=== PATIENT | male | born 1995 | race Caucasian/White ===

== ENCOUNTER 2019-12-11 16:39 | Emergency (ER) | payer OTHER, SELFPAY ==
[2019-12-11 16:46] VITALS: BMI 28.7
[2019-12-11 16:49] VITALS: BP 146/91; PULSE 91; RESP 18; TEMP 36.8; O2SAT 95
--- NOTE | 2019-12-11 16:54 | ED_ITS ---
Entered by Christina Gomez, acting as scribe for Dec 11, 2019 16:39 HPI - Extremity Problem General: Chief complaint: Extremity Injury, Upper Stated complaint: Left elbow Time Seen by Provider: 12/11/19 16:53 Source: patient and family Mode of arrival: ambulatory Limitations: no limitations History of Present Illness: HPI Narrative: 24 yo male presents with possible dislocation of Left elbow and pain. 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 pt was playing football when he slipped and landed on elbow. pt states movement of arm makes this worse and nothing makes it better. pt denies any other symptoms at this time. MD Complaint: extremity pain and extremity swelling Onset (ago): hour(s) (just group captain) Pain Consistency: constant Location: elbow (left) Quality: sharp and constant Radiation: none Relieving factors: nothing Exacerbating factors: range of motion Associated symptoms: Reports no associated symptoms; Deny chest pain, fever(s) or rash Review of Systems General: Reports: 10 or more systems reviewed and unremarkable except in HPI and below Const: Denies: fever, chills, body aches, change in appetite, fatigue or malaise ENMT: Denies: throat pain, ear pain, nasal discharge or nasal congestion Card: Denies: chest pain, edema, shortness of breath on exertion or shortness of breath when lying down Resp: Denies: shortness of breath, productive cough or non-productive cough GI: Denies: abdominal pain, nausea, vomiting, vomiting blood, coffee grounds in vomit, diarrhea, constipation, bloating, blood in stool or black tarry stool : Denies: flank pain, painful urination, urinary frequency or urinary urgency Skin/Breast: Denies: rash or itching PFSH ED PFSH: Social History Smoking and tobacco status: never smoked Physical Exam Const: COMMON NORMALS: no apparent distress GENERAL APPEARANCE: cooperative ORIENTATION/CONSCIOUSNESS: Yes awake, Yes oriented to person, Yes oriented to place and Yes oriented to time HENMT: COMMON NORMALS: normocephalic, head/scalp atraumatic, hearing grossly normal bilaterally, external ears normal, EAC's normal, TM's normal bilaterally, nasal mucous membranes and turbinates normal, moist oral mucous membranes and oropharynx normal HEAD & SCALP: normocephalic and atraumatic NOSE: nasal mucous membranes and turbinates normal EXTERNAL EAR: Yes external ears normal EXTERNAL AUDITORY CANAL: EAC's normal TYMPANIC MEMBRANE: TM's normal bilaterally Eye: COMMON NORMALS: PERRL, EOMs intact bilaterally, conjunctivae normal and no scleral icterus CONJUNCTIVA: Yes conjunctivae normal PUPIL: Yes PERRL Neck/C-Spine: COMMON NORMALS: full ROM, no lymphadenopathy, supple and no JVD Lymph: LYMPHATIC: no lymphadenopathy noted and no lymphedema noted Resp: COMMON NORMALS: normal respiratory effort, no retractions, no use of accessory muscles and clear to auscultation bilaterally AUSCULTATION: clear to auscultation bilaterally Cardio: COMMON NORMALS: no JVD, regular rate, regular rhythm and no murmurs RATE: regular rate RHYTHM: regular rhythm GI: COMMON NORMALS: soft to palpation and no hepatosplenomegaly AUSCULTATION: Yes normoactive bowel sounds PALPATION: Yes soft, No tender, No guarding and Yes no hepatosplenomegaly Extremity: COMMON NORMALS: no clubbing, cyanosis or edema, no calf tenderness and no pedal edema NARRATIVE EXTREMITY EXAM: Obvious deformity of the right elbow LEFT UPPER EXTREMITY: Yes elbow joint (severe pain) Neuro: SENSORIUM/ORIENTATION: Yes oriented to person, Yes oriented to place and Yes oriented to time Skin: COMMON NORMALS: no rashes or lesions noted GENERAL SKIN EXAM: no rashes or lesions noted Procedures Orthopedic Joint Reduction Joint #1: Time Out Performed: Yes Side: left Joint Reduction Location: elbow Analgesia: procedural sedation Post Reduction X-Ray Obtained: Yes Post Reduction X-Ray Results: reduced Patient Tolerated Procedure: well Additional Comments: Left elbow dislocation confirmed on x-ray. Under procedural its sedation with etomidate was reduced. Procedural Sedation Indication: fracture/dislocation reduction Preparation: ekg monitor tech applied, pulse oximeter, supplemental O2 applied, suction/airway equipment at bedside and IV secured IV Etomidate dose (mg): 15 Patient Tolerated Procedure: well and no complications Complications: none Course ED course: Procedure reduction of elbow dislocation. Post procedure films on the lateral appeal normal however on the AP appears to be some persistent dislocation of the radial head. I discussed with Dr. Morales he feels it is reduced well. We will have the patient follow-up with Ortho for further evaluation. Vital Signs: Vital signs: Vital Signs Temperature 98.2 F 12/11/19 16:49 Pulse Rate 70 12/11/19 18:43 Respiratory Rate 16 12/11/19 18:43 Blood Pressure 150/84 12/11/19 18:43 Pulse Oximetry 98 12/11/19 18:43 Discharge Plan Discharge Patient Disposition: Home, Self-Care Clinical Impression: Dislocation of elbow, anterior, left, closed Condition: Stable Prescriptions: New hydrocodone-acetaminophen 5-325 mg tablet 1 tab PO Q6H PRN (Reason: pain) Qty: 20 RF: 0 No Action No Known Home Medications RF: 0 Discharge Orders: Discharge Order (Routine); Ordered 12/11/19 Ordered By: Cleve Kurtz Referrals: Antonio Celaya, SCHOOL DIRECTOR-C [Primary Care Provider] - Activity Restrictions/Additional Instructions: No use of the left arm until cleared by orthopedics. Case management will call with an appointment to Ortho. Leave arm in sling until you see Ortho. Discharge Date/Time: 12/11/19 18:45 Coding Level of Care Code ED Racing Manager for Chg Fwd Exam Comprehensive The documentation recorded by the Jason farooq Bridget Annette, accurately reflects the service I personally performed and the decisions made by Tessie barboza Curtis L, DO Dec 11, 2019 16:39
--- NOTE | 2019-12-11 16:57 | XR_ITS ---
WS: [id number] XR elbow LT 2V [id number] REASON FOR EXAM: L elbow pain, deformity FINDINGS: There is posterior dislocation of the elbow. Lateral displacement of the radius from the ca pitellum. XR/XR elbow LT 2V [id number] IMPRESSION: Posterior dislocated elbow.
[2019-12-11] MEDS: sodium chloride 0.9% 1,000 ML 999 ML IV (17:04)
[2019-12-11] MEDS: morphine 4 mg/mL SDV 1 mL IVP (17:04)
[2019-12-11] MEDS: ondansetron 2 mg/ML SDV 2 mL 4 MG IVP (17:04)
[2019-12-11 17:11] VITALS: PULSE 72; O2SAT 98
--- NOTE | 2019-12-11 17:48 | XR_ITS ---
WS: [id number] XR elbow LT 2V [id number] REASON FOR EXAM: Postreduction film FINDINGS: Post reduction films show slight irregularity along the capitellum and radial articulation suggesting persistent subluxation. In the lateral projection there is normal alignment of the elbow. XR/XR elbow LT 2V [id number] IMPRESSION: Suspect incomplete reduction of the radial head from the previous dislocation.
[2019-12-11 18:13] VITALS: BP 135/95; PULSE 79; RESP 28; O2SAT 99
[2019-12-11 18:43] VITALS: BP 150/84; PULSE 70; RESP 16; O2SAT 98
--- NOTE | 2019-12-14 12:02 | DCPLANNER ---
classification case manager had message to schedule a follow up appointment for patient with ortho. classification case manager called the clinic, spoke with Brandi, gave clinic patients information. classification case manager was told that patients information would be printed and reviewed. Clinic will call machine adjuster leader case trim and patient with appointment information.
--- NOTE | 2019-12-16 10:33 | DCPLANNER ---
Ortho called piano case and bench assembler back and informed piano case and bench assembler that when called patient to schedule a follow up appointment, that patient had been seen by primary care physician, did not need to be seen by the clinic at this time.
== END 2019-12-11 18:45 | disposition home or self-care (01) ==
PROVIDERS: Emergency Provider Family Medicine; Family Provider Nurse Practitioner; PCP Nurse Practitioner
DX: S53.025A Posterior dislocation of left radial head, initial encounter (principal); W01.0XXA Fall on same level from slipping, tripping and stumbling without subsequent striking against object, initial encounter; Y93.61 Activity, american tackle football
CPT/HCPCS: 24600; 24640; 73070; 96361; 96374; 96375; 99282; 99284; J2270; J2405; J3490; J7030

== ENCOUNTER 2022-01-13 20:21 | Emergency (ER) | payer OTHER, SELFPAY ==
[2022-01-13 20:50] VITALS: BP 154/77; PULSE 79; RESP 16; TEMP 37.1; O2SAT 95; BMI 29.2
--- NOTE | 2022-01-13 22:13 | USR_ITS ---
PROCEDURE INFORMATION: Exam: US Scrotum and US Duplex Artery and Vein, Scrotum, Complete Exam date and time: 01/13/2022 10:53 PM Age: 27 years old Clinical indication: Scrotum pain; Additional info: Test pain. Bilateral testicular pain, right worse than left. TECHNIQUE: Imaging protocol: Real-time ultrasound of the scrotum. Real-time duplex ultrasound scan of the arterial and venous flow of the scrotum with B-mode, color Doppler flow and spectral waveform analysis. Complete exam. Duplex images required to evaluate vascular conditions. COMPARISON: No relevant prior studies available. FINDINGS: Right: The right testicle measures 49 x 24 x 29 mm, estimated volume 17.3 cc. No visible intratesticular mass. Duplex Doppler evaluation, with color flow and spectral waveform analysis, demonstrates intratesticular arterial and venous blood flow. Resistance index in the right testicle is 0.43. The right epididymis is normal in size and appearance. There is a very small amount of right scrotal fluid. Left: The left testicle measures 45 x 26 x 26 mm, estimated volume 16.0 cc. No visible intratesticular mass. Duplex Doppler evaluation, with color flow and spectral waveform analysis, demonstrates intratesticular arterial and venous blood flow. Resistance index in the left testicle is 0.65. The left epididymis is normal in size and appearance. There is a very small amount of left scrotal fluid. US/US scrotum [id number] IMPRESSION: 1. No evidence for torsion by Doppler ultrasound. 2. No findings to suggest epididymitis. 3. Very small amount of scrotal fluid bilaterally, unlikely to be significant. 4. Other details discussed above.
[2022-01-13] MEDS: sodium chloride 0.9% 1,000 ML 999 ML IV ×2 (22:19→22:37)
[2022-01-13 22:22] VITALS: RESP 16
[2022-01-13 22:22] LABS: Basophils # 0.1 10^3/uL (0.0-0.1); Basophils % 0.4 %; Eosinophils # 0.1 10^3/uL (0.0-0.8); Eosinophils % 0.8 %; Hematocrit 54.2 % (42.0-52.0); Hemoglobin 19.3 g/dL (11.7-16.6); Lymphocytes # 0.4 10^3/uL (0.8-4.8); Lymphocytes % 2.8 %; Mean Corpuscular HGB Conc 35.6 g/dL (30.0-36.0); Mean Corpuscular Hemoglobin 29.5 pg (28.0-34.0); Mean Corpuscular Volume 82.7 fl (80-94); Mean Platelet Volume 10.1 fL (7.4-10.4); Monocytes # 0.7 10^3/uL (0.2-0.9); Monocytes % 4.6 %; Neutrophils # 13.52 10^3/uL (1.8-7.7); Neutrophils % 91.1 %; Nucleated Red Blood Cells % 0 %; Platelet Count 246 10^3/cmm (130-400); Red Blood Count 6.55 10^6/uL (4.1-5.3); Red Cell Distribution Width 12.1 % (12.1-15.1); White Blood Count 14.9 10^3/uL (4.0-10.0)
[2022-01-13] MEDS: ondansetron 2 mg/ML SDV 2 mL 4 MG IVP (22:22)
[2022-01-13] MEDS: morphine 4 mg/mL SDV 1 mL IVP (22:22)
--- NOTE | 2022-01-13 22:22 | W.ED.NAVMDI ---
HPI - Nausea/Vomiting/Diarrhea General: Chief complaint: Nausea/Vomiting/Diarrhea Stated complaint: Fever\SOB\N\V\Diarhea Time Seen by Provider: 01/13/22 22:03 Source: patient Mode of arrival: ambulatory Limitations: no limitations History of Present Illness: 27-year-old male states that over the last 2 to 3 days been having diffuse abdominal cramping along with nausea vomiting diarrhea along with testicle pain. He states that gotten worse today. States he is also having difficulty urinating. He states the pain in his testicles and abdominal cramping pain rates it a 2-3 out of 10 no fevers denies any worsening improving factors. Associated nausea: Yes Associated symtoms: Reports nausea; Denies chest pain or headache(s) Review of Systems Const: Denies: fever(s), chills, body aches or change in appetite Eyes: Denies: blurry vision or eye discomfort ENMT: Denies: throat pain or dental pain Card: Denies: chest pain Resp: Denies: dyspnea GI: Reports: abdominal pain, nausea and vomiting : Reports: testicular pain Musc: Denies: neck pain or back pain Skin/Breast: Denies: rash Neuro: Denies: headache(s) Psych: Denies: depression Roman/Lymph: Denies: easy bruising All/Imm: Denies: urticaria PFSH ED PFSH: Surgical History No pertinent past surgical history Social History Smoking and tobacco status: never smoked Physical Exam Const: COMMON NORMALS: no acute distress, patient oriented x3 and healthy appearing HENMT: COMMON NORMALS: normocephalic and atraumatic HEAD & SCALP: normocephalic and atraumatic Eye: COMMON NORMALS: Equal, round and reactive pupils present and EOMs intact bilaterally PUPIL: Yes Equal, round and reactive pupils present Neck/C-Spine: COMMON NORMALS: full ROM and supple Chest: COMMONS NORMALS: normal inspection of the chest and normal palpation of entire chest wall Resp: COMMON NORMALS: normal respiratory effort, No retractions, No use of accessory muscles and clear to auscultation bilaterally AUSCULTATION: clear to auscultation bilaterally Cardio: COMMON NORMALS: regular rate, regular rhythm and No murmurs present (Cardio) RATE: regular rate RHYTHM: regular rhythm GI: COMMON NORMALS: Normal to inspection, nondistended, normoactive bowel sounds present, Soft to palpation, non-tender and no masses PALPATION: Yes Soft to palpation Extremity: COMMON NORMALS: normal to inspection and full ROM Neuro: COMMON NORMALS: patient oriented x3, moves all extremities and no focal motor deficits Psych: COMMON NORMALS: mental status grossly normal, Normal thought process present and cooperative THOUGHT PROCESS: Normal thought process present Skin: COMMON NORMALS: no rashes or lesions noted and no wounds GENERAL SKIN EXAM: no rashes or lesions noted Course Vital Signs: Vital signs: Vital Signs Temperature 98.8 F 01/13/22 20:50 Pulse Rate 79 01/13/22 20:50 Respiratory Rate 16 01/13/22 22:22 Blood Pressure 154/77 01/13/22 20:50 Pulse Oximetry 95 01/13/22 20:50 MDM - Nausea/Vomiting/Diarrhea Medical Decision Making Patient presents here with abdominal pain along with vomiting he appeared dehydrated feels improved after IV fluids CT scan here was normal. His pains improved here he has had no vomiting here has been able to tolerate p.o. will prescribe Zofran for home he is to follow-up with his PCP return if worsening. Lab Data : 01/13/22 22:09 01/13/22 22:09 Radiology Impressions Scrotum Ultrasound 01/13/22 22:13 IMPRESSION: 1. No evidence for torsion by Doppler ultrasound. 2. No findings to suggest epididymitis. 3. Very small amount of scrotal fluid bilaterally, unlikely to be significant. 4. Other details discussed above. Abdomen/Pelvis CT 01/13/22 23:18 IMPRESSION: 1. Normal appendix. 2. No hydronephrosis of either kidney. No visible ureteral calculus. 3. The urinary bladder appears essentially unremarkable by CT. 4. Several small bowel loops are fluid-filled and upper range of normal in size, see above discussion. Somewhat distended stomach. This appearance could be secondary to some form of gastroenteritis. 5. No free air or significant bowel distention. 6. Other findings discussed above. Laboratory Results WBC 14.9 10^3/uL (4.0-10.0) H 01/13/22 22:09 RBC 6.55 10^6/uL (4.1-5.3) H 01/13/22 22:09 Hgb 19.3 g/dL (11.7-16.6) H 01/13/22 22:09 Hct 54.2 % (42.0-52.0) H 01/13/22 22:09 MCV 82.7 fl (80-94) 01/13/22 22:09 MCH 29.5 pg (28.0-34.0) 01/13/22 22:09 MCHC 35.6 g/dL (30.0-36.0) 01/13/22 22:09 RDW 12.1 % (12.1-15.1) 01/13/22 22:09 Plt Count 246 10^3/cmm (130-400) 01/13/22 22:09 MPV 10.1 fL (7.4-10.4) 01/13/22 22:09 Neut % (Auto) 91.1 % 01/13/22 22:09 Lymph % (Auto) 2.8 % 01/13/22 22:09 Mckenzie % (Auto) 4.6 % 01/13/22 22:09 Eos % (Auto) 0.8 % 01/13/22 22:09 Baso % (Auto) 0.4 % 01/13/22 22:09 Neut # (Auto) 13.52 10^3/uL (1.8-7.7) H 01/13/22 22:09 Lymph # (Auto) 0.4 10^3/uL (0.8-4.8) L 01/13/22 22:09 Mckenzie # (Auto) 0.7 10^3/uL (0.2-0.9) 01/13/22 22:09 Eos # (Auto) 0.1 10^3/uL (0.0-0.8) 01/13/22 22:09 Baso # (Auto) 0.1 10^3/uL (0.0-0.1) 01/13/22 22:09 Nucleated RBC % (auto) 0 % 01/13/22 22:09 Nucleated RBCs # 0.0 /100WBC 01/13/22 22:09 Sodium 137 mmol/L (136-145) 01/13/22 22:09 Potassium 4.9 mmol/L (3.5-5.1) 01/13/22 22:09 Chloride 102 mmol/L (98-107) 01/13/22 22:09 Carbon Dioxide 19 mmol/L (22-29) L 01/13/22 22:09 Anion Gap 20.9 (5-19) H 01/13/22 22:09 BUN 20 mg/dL (6-20) 01/13/22 22:09 Creatinine 0.9 mg/dL (0.7-1.2) 01/13/22 22:09 GFR Calculation 102.0 mL/min (90-130) 01/13/22 22:09 Glucose 102 mg/dL (65-115) 01/13/22 22:09 Calculated Osmolality 287 mOsm/kg (285-295) 01/13/22 22:09 Calcium 10.2 mg/dL (8.5-10.5) 01/13/22 22:09 Total Bilirubin 1.3 mg/dL (0.15-1.2) H 01/13/22 22:09 AST 25 U/L (0-40) 01/13/22 22:09 ALT 40 U/L (0-41) 01/13/22 22:09 Alkaline Phosphatase 60 IU/L (40-130) 01/13/22 22:09 Total Protein 8.5 g/dL (6.6-8.7) 01/13/22 22:09 Albumin 5.8 g/dL (3.5-5.2) H 01/13/22 22:09 Globulin 2.7 g/dL (1.3-4.6) 01/13/22 22:09 Lipase 14 U/L (13-60) 01/13/22 22:09 Urine Color Yellow (Yellow) 01/14/22 00:05 Urine Appearance Clear (CLEAR) 01/14/22 00:05 Urine pH 5 (5-7) 01/14/22 00:05 Ur Specific Shipman 1.005 (1.005-1.030) 01/14/22 00:05 Urine Protein Neg (Negative) 01/14/22 00:05 Urine Glucose (UA) Norm (Normal) 01/14/22 00:05 Urine Ketones Negative (Negative) 01/14/22 00:05 Urine Blood Neg (Negative) 01/14/22 00:05 Urine Nitrate Negative (Negative) 01/14/22 00:05 Urine Bilirubin Neg (Negative) 01/14/22 00:05 Urine Urobilinogen Norm mg/dL (Negative) 01/14/22 00:05 Ur Leukocyte Esterase Negative (Negative) 01/14/22 00:05 Influenza Type A Ag Negative (Negative) 01/13/22 22:25 Influenza Type B Ag Negative (Negative) 01/13/22 22:25 Discharge Plan Discharge Patient Disposition: Home Clinical Impression: Abdominal pain, Vomiting Condition: Stable Prescriptions: New ondansetron 4 mg tablet,disintegrating 4 mg PO Q6H PRN (Reason: nausea and vomiting) Qty: 14 0RF No Action hydrocodone-acetaminophen 5-325 mg tablet 1 tab PO Q6H PRN (Reason: pain) Qty: 20 0RF Discharge Orders: Discharge ED (Routine); Ordered 01/14/22 Ordered By: Jayla Eastman Referrals: Antonio Celaya, RETAIL SALES ASSISTANT-C [Primary Care Provider] - 1-3 days Discharge Diet: Advance as tolerated Discharge Activity: Resume usual activity Patient Instructions: Acute Nausea and Vomiting (ED), Abdominal Pain (ED) Coding Level of Care Code ED Agriculture Engineer for Chg Fwd Exam Comprehensive
[2022-01-13 22:41] LABS: Alanine Aminotransferase 40 U/L (0-41); Albumin Level 5.8 g/dL (3.5-5.2); Alkaline Phosphatase 60 IU/L (40-130); Blood Urea Nitrogen 20 mg/dL (6-20); Calcium 10.2 mg/dL (8.5-10.5); Carbon Dioxide 19 mmol/L (22-29); Chloride 102 mmol/L (98-107); Globulin 2.7 g/dL (1.3-4.6); Glucose 102 mg/dL (65-115); Lipase 14 U/L (13-60); Osmolality Calculated 287 mOsm/kg (285-295); Sodium 137 mmol/L (136-145); Total Bilirubin 1.3 mg/dL (0.15-1.2); Total Protein 8.5 g/dL (6.6-8.7)
[2022-01-13 22:45] LABS: Anion Gap 20.9 (5-19); Aspartate Amino Transferase 25 U/L (0-40); Potassium 4.9 mmol/L (3.5-5.1)
[2022-01-13 22:49] LABS: Influenza A by IFA Negative (Negative); Influenza B by IFA Negative (Negative)
--- NOTE | 2022-01-13 23:18 | CTR_ITS ---
PROCEDURE INFORMATION: Exam: CT Abdomen And Pelvis With Contrast Exam date and time: 01/13/2022 11:41 PM Age: 27 years old Clinical indication: Nausea and vomiting; Patient HX: C/O abd cramping n/v/d and difficulty urinating; Additional info: Abd pain TECHNIQUE: Imaging protocol: Computed tomography of the abdomen and pelvis with contrast. Radiation optimization: All CT scans at this facility use at least one of these dose optimization techniques: automated exposure control; mA and/or kV adjustment per patient size (includes targeted exams where dose is matched to clinical indication); or iterative reconstruction. Contrast material: OMNI 300; Contrast volume: 95 ml; Contrast route: INTRAVENOUS (IV); COMPARISON: No relevant prior studies available. RADIATION DOSE METRICS: Total DLP (mGy-cm): 1769.07 FINDINGS: Lungs: The lung bases are clear. Liver: There is fatty infiltration of the liver. Gallbladder and bile ducts: No visible gallstones by CT. No biliary tree dilation. Pancreas: Unremarkable. Spleen: Unremarkable. Adrenal glands: Unremarkable. Kidneys and ureters: No hydronephrosis of either kidney. No visible ureteral calculus. No perinephric fluid. The kidneys enhance homogeneously. Stomach and bowel: The stomach appears somewhat distended at the time of scanning. Several small bowel loops are fluid-filled and upper range of normal in size, but the overall appearance is not suggestive of significant small bowel obstruction. This appearance could be secondary to some form of gastroenteritis. Please correlate clinically. If there is clinical suspicion for small bowel obstruction, follow-up may be helpful to exclude progression. No significant bowel distention. There are no CT findings to strongly suggest diverticulitis or colitis. Appendix: The appendix is visualized and appears normal. Intraperitoneal space: No free intraperitoneal air, or ascites. Vasculature: No evidence for abdominal aortic aneurysm. Lymph nodes: No retroperitoneal adenopathy. Urinary bladder: The urinary bladder appears essentially unremarkable by CT. The bladder is not abnormally distended at this time. Reproductive: Essentially unremarkable for age. Bones/joints: No significant acute finding. Soft tissues: Very small umbilical hernia, containing only fat. CT/CT abdomen pelvis w con* [id number] IMPRESSION: 1. Normal appendix. 2. No hydronephrosis of either kidney. No visible ureteral calculus. 3. The urinary bladder appears essentially unremarkable by CT. 4. Several small bowel loops are fluid-filled and upper range of normal in size, see above discussion. Somewhat distended stomach. This appearance could be secondary to some form of gastroenteritis. 5. No free air or significant bowel distention. 6. Other findings discussed above.
[2022-01-13] MEDS: iohexol 300 mg/mL 100 mL Btl IV (23:41)
[2022-01-14 00:12] LABS: Add Urine Microscopic? NO; Charge for UA Resulting for Rev
[2022-01-14 00:17] LABS: Bilirubin Urine Neg (Negative); Blood Urine Neg (Negative); Glucose Urine UA Norm (Normal); Ketones Urine Negative (Negative); Leukocyte Esterase Urine Negative (Negative); Nitrate Urine Negative (Negative); Protein Urine Neg (Negative); Specific Gravity, Urine 1.005 (1.005-1.030); Urine Appearance Clear (CLEAR); Urine Color Yellow (Yellow); Urobilinogen Urine Norm (Negative); pH Urine 5 (5-7)
[2022-01-14 00:50] VITALS: BP 110/71; PULSE 50; RESP 14; O2SAT 99
--- NOTE | 2022-01-14 14:20 | DCPLANNER ---
Addendum entered by Amirah Rodriguez 02/01/22 07:47: Patient had a follow up appointment scheduled for 01.17.[address] Hancock at [facility] to establish care - patient did attend appointment. Addendum entered by Amirah Rodriguez 01/14/22 14:45: Patient called family preservation caseworker back, stated that he would like to get established with a primary care physician. affiliate marketing manager called [facility], spoke with Caty, gave clinic patients information. A follow up appointment was scheduled for December at 8:[address] Hancock. affiliate marketing manager called patient and gave patient the appointment information. Original Note: affiliate marketing manager had message to speak with patient about getting a primary care physician. affiliate marketing manager called phone number [phone], unable to speak with patient at this time, a voicemail was left for patient to return binder caser phone call.
== END 2022-01-14 00:51 | disposition home or self-care (01) ==
PROVIDERS: Emergency Provider Emergency Medicine; PCP Nurse Practitioner
DX: R10.9 Unspecified abdominal pain (principal); R11.11 Vomiting without nausea
CPT/HCPCS: 74177; 76870; 80053; 81003; 83690; 85025; 87804; 96361; 96374; 96375; 99284; J2270; J2405; J7030; Q9967

== ENCOUNTER 2023-09-12 10:49 | Outpatient (CLI) | payer OTHER, SELFPAY ==
--- NOTE | 2023-09-12 10:52 | XR_ITS ---
WS: [id number] Exam: XR cervical spine 3V* [id number] Date/Time of Exam: 09/12/2023 10:52 AM Reason For Exam: neck pain, syncope w/ turning head No acute fracture or dislocation. Disc spaces are preserved. Posterior elements are intact. Normal pa raspinal soft tissues. Unremarkable odontoid. IMPRESSION: 1. Negative C-spine study.
--- NOTE | 2023-09-12 11:15 | USCV_ITS ---
Yolanda Jorge Age: 28 Gender: M : 1995 Exam Date: 09/12/2023 11:54 Ordering Phys: Esther Patton MD Technologist: CT [place] [facility] [place]: syncope Risk Factors: Previous Vascular Surgery: Right Brachial BP: / Left Brachial BP: / Right Left Velocity (cm/s) Spectral Plaque Velocity (cm/s) Spectral Plaque Syst/Diast Broadening Syst/Diast Broadening 130.10/35.30 Prox CCA 132.10/ 40.40 115.80/37.50 Mid CCA 138.30/ 37.30 125.70/34.20 Distal CCA 121.20/ 28.00 68.20/ 20.60 Prox ICA 61.50 / 19.80 63.90/ 22.00 Mid ICA 50.20 / 21.80 56.10/ 20.40 Distal ICA 51.70 / 20.40 106.90 ECA 72.80 0.52 ICA/CCA 0.44 Antegrade Vertebral Antegrade 50.40/ 12.00 cm/s 50.50/ 19.40 cm/s Tri Subclavian Tri 97.40 97.40 FINDINGS normal us, dominant left vert CONCLUSIONS Right ICA stenosis <50%. Left ICA stenosis <50%. Normal antegrade Doppler flow noted in the right vertebral artery. Normal antegrade Doppler flow noted in the left vertebral artery. Charles Proctor MD (Electronically Signed) Final Date: 12 September 2023 15:43 S
--- NOTE | 2023-09-12 12:30 | USCV_ITS ---
Yolanda Jorge Age: 28 Gender: M : 1995 Exam Date: 09/12/2023 13:14 Ordering Phys: Esther Patton MD Technologist: Exam Location: [facility] [place] Indication: cyanosis RIGHT LEFT Brachial 128.00 mmHg Brachial 127.00 mmHg Pressure (mmHg) Waveform Pressure (mmHg) Waveform 139.00 CLEARING INSPECTOR 145.00 132.00 DPA 130.00 FINDINGS Resting SARAH of 1.03 on the right side and 1.13 on the left side. Resting TBI of 0.97 on the right and 0.9 on the left CONCLUSIONS Normal resting ABIs and TBIs bilaterally, suggesting no significant arterial obstruction. Dr Alexus Mccullough MD [facility] (Electronically Signed) Final Date: 12 September 2023 21:37 S
== END 2023-09-12 10:50 | disposition home or self-care (01) ==
LOC: RAD 10:49
PROVIDERS: PCP Family Medicine; Visit Provider Family Medicine
DX: R55 Syncope and collapse (principal); I65.23 Occlusion and stenosis of bilateral carotid arteries; L81.9 Disorder of pigmentation, unspecified; R23.0 Cyanosis
CPT/HCPCS: 72040; 93880; 93922

== ENCOUNTER 2025-02-26 11:51 | Emergency (ER) | payer OTHER, SELFPAY ==
[2025-02-26 11:57] VITALS: BMI 30.7
--- NOTE | 2025-02-26 12:27 | ED_ITS ---
HPI - General Adult 2 General: Chief complaint: General Medical Stated complaint: chills, fatigue, swollen lymph nodes Time Seen by Provider: 02/26/25 12:03 History of Present Illness: 30-year-old male presents with concerns because he is got some chills, fatigue, a swollen lymph node in his groin. Patient is concerned that he may have a tickborne illness. Patient was seen yesterday at urgent care and checked for strep which was negative. They started him on doxycycline 100 mg twice daily but he was not aware that that was the treatment for tickborne illness. Associated symptoms: Deny chest pain, nausea, rash, palpitations or vomiting Related Data Home Medications ?Medication ?Instructions ?Recorded ?Confirmed doxycycline hyclate 100 mg capsule 100 mg PO BID 02/2602/26/25 Allergies Allergy/AdvReac Type Severity Reaction Status Date / Time No Known Allergies Allergy Verified 10/15/23 13:07 Review of Systems 2 Const: Reports: chills, body aches and fatigue Card: Denies: chest pain or palpitations GI: Denies: abdominal pain, nausea or vomiting : Denies: flank pain or difficulty urinating Musc: Denies: neck pain or back pain Skin/Breast: Denies: rash Roman/Lymph: Reports: enlarged lymph nodes (Right groin) PFSH ED 2 PFSH: Surgical History History of tonsillectomy Family History Father Dementia Mother Multiple sclerosis Uterine cancer Grandfather Carotid artery disease Grandmother Colon cancer Other CAD (coronary artery disease) Cancer Diabetes Hypertension Stroke Social History Smoking and tobacco/nicotine status: current every day tobacco/nicotine user smokeless tobacco Smokeless tobacco user: chewing tobacco Alcohol intake: never Substance/Drug Use: never Household members: spouse Marital status: Number of children: 0 Cassi/Zoroastrianism: [employer] Special cassi needs: No Agree to transfusion: Yes Physical Exam 2 Const: COMMON NORMALS: no acute distress, patient oriented x3, no limitations and alert HENMT: COMMON NORMALS: normocephalic, atraumatic and hearing grossly normal bilaterally HEAD & SCALP: normocephalic and atraumatic Lymph: OTHER: Swollen node right groin Chest: COMMONS NORMALS: normal inspection of the chest Resp: COMMON NORMALS: normal respiratory effort, No retractions and No use of accessory muscles Cardio: COMMON NORMALS: regular rate and regular rhythm RATE: regular rate RHYTHM: regular rhythm GI: COMMON NORMALS: Soft to palpation and non-tender PALPATION: Yes Soft to palpation Extremity: COMMON NORMALS: normal to inspection, full ROM and capillary refill normal Neuro: COMMON NORMALS: patient oriented x3 SENSORIUM/ORIENTATION: Yes alert Skin: COMMON NORMALS: no rashes or lesions noted and turgor normal GENERAL SKIN EXAM: no rashes or lesions noted and turgor normal MDM - General Adult Medical Decision Making Patient's diagnostic studies were ordered reviewed and interpreted by me. He does have a low white count which would be much more consistent with viral syndrome. However he does have exposure for potential tickborne illness with tick bites. I recommend he continue the doxycycline. Patient should follow-up with his primary care provider if the lymphadenopathy does not improve or it becomes worse especially after the doxycycline. Patient was stable and discharged home. Lab Data 02/26/25 12:19 02/26/25 12:19 Laboratory Results WBC 3.16 10^3/uL (3.29-11.43) L 02/26/25 12:19 RBC 5.51 10^6/uL (3.85-5.65) 02/26/25 12:19 Hgb 16.00 g/dL (11.27-16.99) 02/26/25 12:19 Hct 45.6 % (37-53) 02/26/25 12:19 MCV 82.8 fl (82-101) 02/26/25 12:19 MCH 29.0 pg (27-33) 02/26/25 12:19 MCHC 35.1 g/dL (30-55) 02/26/25 12:19 RDW 11.6 % (12.1-15.1) L 02/26/25 12:19 Plt Count 197 10^3/cmm (157-399) 02/26/25 12:19 MPV 9.5 fL (7.4-10.4) 02/26/25 12:19 Neut % (Auto) 56.7 % 02/26/25 12:19 Lymph % (Auto) 21.8 % 02/26/25 12:19 [place] % (Auto) 17.7 % 02/26/25 12:19 Eos % (Auto) 1.6 % 02/26/25 12:19 Baso % (Auto) 1.6 % 02/26/25 12:19 Neut # (Auto) 1.79 10^3/uL (1.8-7.7) L 02/26/25 12:19 Lymph # (Auto) 0.7 10^3/uL (0.8-4.8) L 02/26/25 12:19 [place] # (Auto) 0.6 10^3/uL (0.2-0.9) 02/26/25 12:19 Eos # (Auto) 0.1 10^3/uL (0.0-0.8) 02/26/25 12:19 Baso # (Auto) 0.1 10^3/uL (0.0-0.1) 02/26/25 12:19 Nucleated RBC % (auto) 0 % 02/26/25 12:19 Nucleated RBCs # 0.0 /100WBC 02/26/25 12:19 Sodium 137 mmol/L (136-145) 02/26/25 12:19 Potassium 4.2 mmol/L (3.5-5.1) 02/26/25 12:19 Chloride 101 mmol/L (98-107) 02/26/25 12:19 Carbon Dioxide 27 mmol/L (22-29) 02/26/25 12:19 Anion Gap 13.2 (5-19) 02/26/25 12:19 BUN 16 mg/dL (6-20) 02/26/25 12:19 Creatinine 1.0 mg/dL (0.7-1.2) 02/26/25 12:19 GFR Calculation 88.3 mL/min (90-130) L 02/26/25 12:19 Glucose 67 mg/dL (65-115) 02/26/25 12:19 Calculated Osmolality 283 mOsm/kg (285-295) L 02/26/25 12:19 Calcium 9.0 mg/dL (8.5-10.5) 02/26/25 12:19 Total Bilirubin 0.8 mg/dL (0.15-1.2) 02/26/25 12:19 AST 23 U/L (0-40) 02/26/25 12:19 ALT 32 U/L (0-41) 02/26/25 12:19 Alkaline Phosphatase 50 U/L (40-130) 02/26/25 12:19 Total Protein 7.3 g/dL (6.6-8.7) 02/26/25 12:19 Albumin 4.6 g/dL (3.5-5.2) 02/26/25 12:19 Globulin 2.7 g/dL (1.3-4.6) 02/26/25 12:19 Urine Color Yellow (Yellow) 02/26/25 12:28 Urine Appearance Clear (CLEAR) 02/26/25 12:28 Urine pH 5.5 (5-7) 02/26/25 12:28 Ur Specific [place] 1.013 (1.005-1.030) 02/26/25 12:28 Urine Protein Neg (Negative) 02/26/25 12:28 Urine Glucose (UA) Norm (Normal) 02/26/25 12:28 Urine Ketones Negative (Negative) 02/26/25 12:28 Urine Blood Neg (Negative) 02/26/25 12:28 Urine Nitrate Negative (Negative) 02/26/25 12:28 Urine Bilirubin Neg (Negative) 02/26/25 12:28 Urine Urobilinogen 1 mg/dL (Negative) H 02/26/25 12:28 Ur Leukocyte Esterase Negative (Negative) 02/26/25 12:28 Urine RBC 0-2 /hpf (0-2) 02/26/25 12:28 Urine WBC 0-5 /hpf (0-5) 02/26/25 12:28 Ur Squamous Epith Cells 0-5 /hpf (0-5) 02/26/25 12:28 Amorphous Sediment Not Reportable 02/26/25 12:28 Urine Bacteria None seen /hpf (NONE) 02/26/25 12:28 Hyaline Casts 0-4 /lpf H 02/26/25 12:28 No radiology studies performed this visit Discharge Plan Discharge Patient Disposition: Home Clinical Impression: Acute viral syndrome, Tick bite, Inguinal lymphadenopathy Condition: Stable Prescriptions: No Action doxycycline hyclate 100 mg capsule 100 mg PO BID Discharge Orders: Discharge ED (Routine); Ordered 02/26/25 Ordered By: Tom Hanson Referrals: Esther Patton MD [Primary Care Provider, [facility]] Discharge Diet: Usual diet Discharge Activity: Resume usual activity Patient Instructions: Lymphadenopathy, Tick Bite (ED), Opioid Safety, Pain Management, Viral Syndrome - Adult Activity Restrictions/Additional Instructions: Please take doxycycline until gone as prescribed. If you continue to have swollen lymph node after completion of doxycycline or symptoms worsen please follow with your primary care provider for further outpatient evaluation. Tylenol or ibuprofen as needed for body aches, fever or chills. Be sure to drink plenty of fluids. Print Language: Tamazight Coding Level of Care Code ED [employer] for Adelina Mckeon
[2025-02-26 12:28] LABS: Basophils # 0.1 10^3/uL (0.0-0.1); Basophils % 1.6 %; Eosinophils # 0.1 10^3/uL (0.0-0.8); Eosinophils % 1.6 %; Hematocrit 45.6 % (37-53); Lymphocytes # 0.7 10^3/uL (0.8-4.8); Lymphocytes % 21.8 %; Mean Corpuscular HGB Conc 35.1 g/dL (30-55); Mean Corpuscular Volume 82.8 fl (82-101); Mean Platelet Volume 9.5 fL (7.4-10.4); Monocytes # 0.6 10^3/uL (0.2-0.9); Monocytes % 17.7 %; Neutrophils # 1.79 10^3/uL (1.8-7.7); Neutrophils % 56.7 %; Nucleated Red Blood Cells % 0 %; Platelet Count 197 10^3/cmm (157-399); Red Blood Count 5.51 10^6/uL (3.85-5.65); Red Cell Distribution Width 11.6 % (12.1-15.1); White Blood Count 3.16 10^3/uL (3.29-11.43)
[2025-02-26 12:44] LABS: Alanine Aminotransferase 32 U/L (0-41); Albumin Level 4.6 g/dL (3.5-5.2); Alkaline Phosphatase 50 U/L (40-130); Anion Gap 13.2 (5-19); Aspartate Amino Transferase 23 U/L (0-40); Blood Urea Nitrogen 16 mg/dL (6-20); Carbon Dioxide 27 mmol/L (22-29); Chloride 101 mmol/L (98-107); Creatinine Clr Calc Pharmacy 131.1897; Globulin 2.7 g/dL (1.3-4.6); Glomerular Filtration Rate 88.3 mL/min (90-130); Glucose 67 mg/dL (65-115); Osmolality Calculated 283 mOsm/kg (285-295); Potassium 4.2 mmol/L (3.5-5.1); Sodium 137 mmol/L (136-145); Total Bilirubin 0.8 mg/dL (0.15-1.2); Total Protein 7.3 g/dL (6.6-8.7)
[2025-02-26 12:49] LABS: Bacteria Urine None Seen /hpf; Hyaline Casts Urine 0-4 /lpf; RBC Urine 0-2 /hpf (0-2); Squamous Epithelial Cell Urine 0-5 /hpf (0-5); WBC Urine 0-5 /hpf (0-5)
[2025-02-26 12:51] LABS: Add Urine Culture? No; Add Urine Microscopic? YES; Bilirubin Urine Neg (Negative); Blood Urine Neg (Negative); Glucose Urine UA Norm (Normal); Ketones Urine Negative (Negative); Leukocyte Esterase Urine Negative (Negative); Nitrate Urine Negative (Negative); Protein Urine Neg (Negative); Specific Gravity, Urine 1.013 (1.005-1.030); Urine Appearance Clear (CLEAR); Urine Color Yellow (Yellow); Urobilinogen Urine 1 mg/dL (Negative); pH Urine 5.5 (5-7)
[2025-02-26 13:22] VITALS: BP 130/71; PULSE 69; O2SAT 95
== END 2025-02-26 13:22 | disposition home or self-care (01) ==
PROVIDERS: Emergency Provider Student in an Organized Health Care Education/Training Program; PCP Family Medicine
DX: B34.9 Viral infection, unspecified (principal); R59.1 Generalized enlarged lymph nodes; W57.XXXA Bitten or stung by nonvenomous insect and other nonvenomous arthropods, initial encounter; F17.220 Nicotine dependence, chewing tobacco, uncomplicated
CPT/HCPCS: 36415; 80053; 81001; 85025; 99283